=== PATIENT | male | born 1985 | race African-American/Black ===

== ENCOUNTER → 2016-06-24 | Outpatient (CLI) | payer OTHER ==
[~2016-06-24] MED LIST: BACTRIM DS TABL1 TA1 PO; CHOLESTEROL; FLEXERIL10 MG PO; IBUPROFEN800 MG PO; PREDNISONE5 M1 PO; VOLTAREN75 MG PO; [UNRECOGNIZED DRUG - OTHER]
--- NOTE | ~2016-06-24 | EKG ---
PATIENT: LEELA RUSSELL UNIT #: [id number] Ventricular Rate: 89 BPM Atrial Rate: 89 BPM P-R Interval: 120 ms QRS Duration: 130 ms Q-T Interval: 366 ms QTC Calculation(Bezet): 445 ms P Brunson: 8 degrees Calculated R Brunson: -65 degrees Calculated T Brunson: 4 degrees Diagnosis Line: Normal sinus rhythm Diagnosis Line: Right bundle branch block Diagnosis Line: Left anterior fascicular block Diagnosis Line: Bifascicular block Diagnosis Line: Moderate voltage criteria for LVH, may be normal Diagnosis Line: variant Diagnosis Line: Abnormal ECG Diagnosis Line: When compared with ECG of 16-MAR-2015 12:06, Diagnosis Line: Borderline criteria for Lateral infarct are no Diagnosis Line: longer Present Diagnosis Line: Confirmed by JAXON LOZANO MD ([id number]) on Diagnosis Line: 06/25/2016 4:26:36 PM INTERPRETING MD: BLAKE HORAN
== END | disposition home or self-care (01) ==
LOC: CEKG 11:07
DX: R07.89 Other chest pain (principal); I45.10 Unspecified right bundle-branch block; I44.4 Left anterior fascicular block; R94.31 Abnormal electrocardiogram [ECG] [EKG]
CPT/HCPCS: 93005